=== PATIENT | female | born 1985 | race Hispanic/Latino ===

== ENCOUNTER 2019-10-21 10:18 | Outpatient (CLI) | payer OTHER, SELFPAY ==
[2019-10-21 10:54] LABS: Blood Urea Nitrogen 14 mg/dL (7-17); Carbon Dioxide 28 mmol/L (22-30); Chloride 103 mmol/L (98-107); Estimated Glomerular Filt Rate > 60; Glucose 99 mg/dL (65-105); Potassium 3.5 mmol/L (3.4-5.0); Sodium 137 mmol/L (137-145)
[2019-10-21 11:09] LABS: Erythrocyte Sedimentation Rate 21 mm/hr (0-20)
== END 2019-10-21 10:19 | disposition home or self-care (01) ==
PROVIDERS: PCP Family Medicine; Visit Provider Physician Assistant
DX: R51 Headache (principal); Z79.52 Long term (current) use of systemic steroids
CPT/HCPCS: 36415; 80048; 85652

== ENCOUNTER 2019-12-19 18:29 | Outpatient (CLI) | payer OTHER, SELFPAY ==
--- NOTE | ~2019-12-19 | MR_ITS ---
EXAMINATION: MR brain/brain stem wo con DATE: 12/19/2019 19:03 INDICATION: Headache TECHNIQUE: Magnetic resonance imaging (MRI) of the brain and brainstem was performed without intraven ous contrast. Sequences included sagittal and axial T1-weighted SE, axial diffusion-weighted FS SE, a xial T2*-weighted GRE, axial T2-weighted FLAIR, and axial T2-weighted FSE. Apparent diffusion coeffic ient (ADC) maps were created. COMPARISON: CTA brain and carotid dated 08/05/2019 FINDINGS: There are no areas of restricted diffusion to suggest acute infarction. No intracranial hemorrhage or abnormal intracranial mass lesion. There are no intraparenchymal signal abnormalities seen on the ot her pulse sequences. The ventricles are symmetric and normal in size. There are no abnormal extra-axi al fluid collections. Flow voids are seen in the cerebral arteries on the T2-weighted sequences consi stent with their expected patency. Visualized orbits and soft tissues are unremarkable. Incidentally noted on the sagittal images is an annular fissure and disc protrusion resulting in mild central lan l stenosis at C3-C4. IMPRESSION: 1. Normal brain. Reviewed, dictated and finalized at location A. IMPRESSION: 1. Normal brain.
== END 2019-12-19 18:30 | disposition home or self-care (01) ==
PROVIDERS: PCP Internal Medicine; Visit Provider Internal Medicine Rheumatology
DX: R51 Headache (principal)
CPT/HCPCS: 70551

== ENCOUNTER 2020-01-14 10:47 | Outpatient (CLI) | payer OTHER, SELFPAY ==
[2020-01-14 12:16] LABS: Erythrocyte Sedimentation Rate 89 mm/hr (0-20)
[2020-01-14 12:25] LABS: Thyroid Stimulating Hormone 0.243 uIU/mL (0.465-4.680)
[2020-01-14 12:29] LABS: CRP 4.4 mg/dL (<1.0)
[2020-01-14 12:32] LABS: Free T4 Free Thyroxine 1.04 ng/mL (0.78-2.19)
[2020-01-14 14:00] LABS: Folic Acid > 20.0 ng/mL (2.76->20); Vitamin B12 > 1000.0 pg/mL (239-931)
== END 2020-01-14 10:48 | disposition home or self-care (01) ==
PROVIDERS: PCP Internal Medicine; Visit Provider Internal Medicine Rheumatology
DX: R53.83 Other fatigue (principal); E83.42 Hypomagnesemia; E55.9 Vitamin D deficiency, unspecified; E53.8 Deficiency of other specified B group vitamins; D50.9 Iron deficiency anemia, unspecified
CPT/HCPCS: 36415; 82306; 82607; 82746; 83735; 84439; 84443; 85652; 86038; 86140

== ENCOUNTER 2020-03-10 16:10 | Outpatient (CLI) | payer OTHER, SELFPAY ==
[2020-03-10 17:19] LABS: Hemoglobin 11.5 g/dL (12.0-15.0); Mean Corpuscular HGB Conc 32.9 g/dl (32-36); Mean Corpuscular Volume 88.2 fl (80-100); Platelet Count Result 296 k/mm3 (150-375); Red Blood Count 3.97 M/mm3 (4.2-5.4); Red Cell Distribution Width 12.2 % (11.5-14.5); White Blood Count 9.4 K/mm3 (4.5-10.0)
[2020-03-10 17:32] LABS: Alanine Aminotransferase 13 U/L (4-35); Albumin Level 4.2 g/dL (3.5-5.1); Alkaline Phosphatase 39 U/L (38-126); Anion Gap 8 mmol/L (8-16); Aspartate Amino Transferase 22 U/L (14-36); Bilirubin,Total < 0.1 mg/dL (0.2-1.3); Blood Urea Nitrogen 15 mg/dL (7-17); CRP 3.3 mg/dL (<1.0); Carbon Dioxide 24 mmol/L (22-30); Chloride 105 mmol/L (98-107); Estimated Glomerular Filt Rate > 60; Glucose 93 mg/dL (65-105); Sodium 137 mmol/L (137-145)
[2020-03-10 17:42] LABS: Erythrocyte Sedimentation Rate 74 mm/hr (0-20)
[2020-03-14 05:00] LABS: Albumin 3.5 g/dL (3.8-4.8); Alpha 1 Globulin 0.3 g/dL (0.2-0.3); Alpha 2 Globulin 0.9 g/dL (0.5-0.9); Beta 1 Globulin 0.5 g/dL (0.4-0.6); Gamma Globulin 0.9 g/dL (0.8-1.7); Protein, Total 6.4 g/dL (6.1-8.1)
== END 2020-03-10 16:11 | disposition home or self-care (01) ==
PROVIDERS: PCP Internal Medicine; Visit Provider Internal Medicine Rheumatology
DX: M79.2 Neuralgia and neuritis, unspecified (principal); R53.83 Other fatigue; M19.90 Unspecified osteoarthritis, unspecified site; M79.10 Myalgia, unspecified site
CPT/HCPCS: 36415; 80053; 84155; 84165; 85027; 85652; 86140; 86334; 86335

== ENCOUNTER 2020-06-18 10:07 | Outpatient (CLI) | payer OTHER, SELFPAY ==
[2020-06-18 10:23] LABS: Hematocrit 39.6 % (37.0-47.0); Hemoglobin 12.7 g/dL (12.0-15.0); Mean Corpuscular HGB Conc 32.1 g/dl (32-36); Mean Corpuscular Hemoglobin 28.7 pg (26-34); Mean Corpuscular Volume 89.4 fl (80-100); Mean Platelet Volume 8.9 fl (7.4-10.4); Platelet Count Result 328 k/mm3 (150-375); Red Blood Count 4.43 M/mm3 (4.2-5.4); Red Cell Distribution Width 12.9 % (11.5-14.5); White Blood Count 10.3 K/mm3 (4.5-10.0)
[2020-06-18 10:38] LABS: CRP 2.5 mg/dL (<1.0)
[2020-06-18 10:58] LABS: Erythrocyte Sedimentation Rate 31 mm/hr (0-20)
== END 2020-06-18 10:08 | disposition home or self-care (01) ==
PROVIDERS: PCP Internal Medicine; Visit Provider Internal Medicine Rheumatology
DX: Z51.81 Encounter for therapeutic drug level monitoring (principal); Z79.899 Other long term (current) drug therapy; R70.0 Elevated erythrocyte sedimentation rate; R79.82 Elevated C-reactive protein (CRP)
CPT/HCPCS: 36415; 85027; 85652; 86140

== ENCOUNTER 2021-06-17 09:47 | Outpatient (CLI) | payer OTHER, SELFPAY ==
[2021-06-17 11:11] LABS: Hematocrit 38.1 % (37.0-47.0); Hemoglobin 12.3 g/dL (12.0-15.0); Mean Corpuscular HGB Conc 32.3 g/dl (32-36); Mean Corpuscular Hemoglobin 28.7 pg (26-34); Mean Corpuscular Volume 88.8 fl (80-100); Platelet Count Result 341 k/mm3 (150-375); Red Blood Count 4.29 M/mm3 (4.2-5.4); Red Cell Distribution Width 12.9 % (11.5-14.5); White Blood Count 9.2 K/mm3 (4.5-10.0)
[2021-06-17 11:29] LABS: Alanine Aminotransferase 25 U/L (4-35); Albumin Level 4.7 g/dL (3.5-5.1); Alkaline Phosphatase 49 U/L (38-126); Anion Gap 9 mmol/L (8-16); Aspartate Amino Transferase 25 U/L (14-36); Bilirubin,Total 0.5 mg/dL (0.2-1.3); Blood Urea Nitrogen 11 mg/dL (7-17); CRP 1.6 mg/dL (<1.0); Calcium 9.3 mg/dL (8.4-10.2); Carbon Dioxide 25 mmol/L (22-30); Chloride 101 mmol/L (98-107); Estimated Glomerular Filt Rate > 60; Glucose 124 mg/dL (65-110); Potassium 3.9 mmol/L (3.4-5.0); Sodium 135 mmol/L (137-145)
[2021-06-17 11:43] LABS: Free T4 Free Thyroxine 1.02 ng/mL (0.78-2.19)
[2021-06-17 11:56] LABS: Thyroid Stimulating Hormone 0.942 uIU/mL (0.465-4.680)
[2021-06-17 12:05] LABS: Erythrocyte Sedimentation Rate 33 mm/hr (0-20)
[2021-06-17 12:32] LABS: Folic Acid 10.8 ng/mL (2.76->20); Vitamin B12 > 1000.0 pg/mL (239-931)
[2021-06-17 16:38] LABS: Vitamin D 25 Hydroxy 93.5 ng/mL
[2021-06-20 07:26] LABS: Triiodothyronine T3 Free 3.3 pg/mL (2.3-4.2)
== END 2021-06-17 09:48 | disposition home or self-care (01) ==
PROVIDERS: PCP Internal Medicine; Visit Provider Internal Medicine Rheumatology
DX: R53.83 Other fatigue (principal); E55.9 Vitamin D deficiency, unspecified; E53.8 Deficiency of other specified B group vitamins; D50.9 Iron deficiency anemia, unspecified; Z51.81 Encounter for therapeutic drug level monitoring
CPT/HCPCS: 36415; 80053; 82306; 82607; 82728; 82746; 84439; 84443; 84481; 85027; 85652; 86140